=== PATIENT | male | born 1995 | race Caucasian/White ===

== ENCOUNTER 2019-03-02 19:54 | Emergency (ER) | payer OTHER ==
[~2019-03-02] VITALS: Ht 188 cm; Wt 99.8 kg
[2019-03-02 20:10] VITALS: BP 128/88
--- NOTE | 2019-03-02 20:10 | NUR ---
ED Nurse Note: Patient walked in to ER c/o laceration on his left arm. PT AAOX4, VSS, NO ACUTE DISTRESS. LACERATION IS STILL BLEEDING, BUT CONTROLLED WITH PRESSUTRE. PT IS COOPERATIVE AND STATES PAIN IS 5/10.
[2019-03-02] MEDS ORDERED: Thrombin 5000 units TOPIC ONE (20:15)
[2019-03-02] MEDS ORDERED: Tetanus/Diptheria/Pertussis IM ONE (20:15)
--- NOTE | 2019-03-02 20:16 | Emergency Room Report ---
History of Present Illness General Chief Complaint: Upper Extremity Injury Source: Patient Present Illness HPI 24-year-old male no past medical history no surgical history presents with bleeding wound from his left hand, patient is a vegetable carleen, sliced a piece of skin off, has continued to bleed, just prior to arrival no aggravating relieving factors severity is mild, no weakness, patient presents for evaluation Allergies: Coded Allergies: No Known Allergies (Unverified , 03/02/19) Patient History Past Medical History: see triage record Reviewed Nursing Documentation: PMH: Agreed; PSxH: Agreed Review of Systems All Other Systems: negative except mentioned in HPI Physical Exam Vital Signs Date Time Temp Pulse Resp B/P (MAP) Pulse Ox O2 Delivery O2 Flow Rate FiO2 03/02/19 20:01 98.1 86 20 128/88 (101) 96 Room Air General Appearance: well appearing, no apparent distress Head: normocephalic, atraumatic ENT: hearing grossly normal, normal voice Neck: full range of motion, supple Respiratory: no respiratory distress, speaking full sentences Musculoskeletal: other - Time: 2+ radial pulse, radial median ulnar nerve intact, piece of skin is missing from the palmar aspect of hand, below the base of thumb, measuring 2x2cm missing top part of skin Neurologic: alert, normal gait Psychiatric: mood/affect normal Skin: no rash Medical Decision Making Diagnostic Impression: Primary Impression: Avulsion of skin of hand Qualified Codes: S61.402A - Unspecified open wound of left hand, initial encounter ER Course 24 year old male presents with avulsion of skin to hand. Pressure unable to stop bleeding Surgicel attempted, bleeding stopped TDAP given. Dispo home w/ return precautions Last Vital Signs Date Time Temp Pulse Resp B/P (MAP) Pulse Ox O2 Delivery O2 Flow Rate FiO2 03/02/19 20:01 98.1 86 20 128/88 (101) 96 Room Air Disposition: HOME, SELF-CARE Condition: Stable Scripts Cephalexin* (KEFLEX*) 500 Mg Tablet 500 MG ORAL EVERY 6 HOURS, #20 CAP Prov: Lokesh Leary MD 03/02/19 Referrals: [facility] Departure Forms: Return to Work Return to Work Date: Mar 04, 2019 Patient Instructions: Deep Skin Avulsion Additional Instructions: The patient was provided with discharge instructions, notified to follow-up with a primary care doctor and or specialist in the next 24-48 hours, and to return to the ED if they have worsening of their symptoms. Please note that this report is being documented using [employer] technology. This can lead to erroneous entry secondary to incorrect interpretation by the dictating instrument. Lokesh Leary MD Mar 02, 2019 20:16
[2019-03-02] MEDS ORDERED: Surgicel 4in x 8in TOPIC ONE ×2 (20:30→21:00)
[2019-03-02] MEDS ORDERED: CEPHALEXIN500 M1 ORAL (20:38)
--- NOTE | 2019-03-02 21:00 | NUR ---
ED Nurse Note: PT WAS OFFERED FOOD AND DRINK. PT REFUSED.
[2019-03-02 21:25] VITALS: BP 119/84
--- NOTE | 2019-03-02 21:25 | NUR ---
ER DISCHARGE NOTE: Patient is cleared to be discharged per ERMD, pt is aox4, on room air, with stable vital signs. pt was given dc and prescription instructions, pt was able to verbalize understanding, pt id band. pt is able to ambulate with steady gait. pt took all belongings. LINO WRAP AND BANDAGE WAS PLACED ON INJURED HAND. PT BLEEDING STOPPED.
== END 2019-03-02 21:25 | disposition home or self-care (01) ==
LOC: EDSEX 19:54 → EMR 20:15
DX: S61.402A Unspecified open wound of left hand, initial encounter (principal); Z23 Encounter for immunization; W27.4XXA Contact with kitchen utensil, initial encounter; Y93.G9 Activity, other involving cooking and grilling; Y92.511 Restaurant or cafe as the place of occurrence of the external cause; Y99.0 Civilian activity done for income or pay
CPT/HCPCS: 90471; 90715; 99283